=== PATIENT | male | born 1975 | race Caucasian/White ===

== ENCOUNTER 2019-07-26 16:24 | Inpatient (IN) ==
[2019-07-26] MEDS: Famotidine 20 MG TABLET PO SCH (23:51)
[2019-07-27] MEDS ORDERED: Naloxone 0.4 MG/ML INJ IVP PRN (01:41)
[2019-07-27] MEDS ORDERED: D5% in Water 1,000 ML IVC PRN (01:42)
[2019-07-27] MEDS ORDERED: *HR* Dextrose 50 % in Water (Syg) 50 ML SYRINGE IVP PRN (01:42)
[2019-07-27] MEDS ORDERED: Dextrose Gel 15 GM/37.5 ML TUBE PO PRN ×2 (01:42)
[2019-07-27] MEDS: Insulin LISPRO 300 UNITS/3 ML VIAL SQ SCH ×3 (06:06→17:56)
[2019-07-27] MEDS: *HR* Heparin 5,000 UNIT/ML VIAL SQ SCH ×2 (06:15→15:15)
[2019-07-27] MEDS: Famotidine 20 MG TABLET PO SCH ×2 (06:15→15:14)
[2019-07-27] MEDS: Pantoprazole 40 MG VIAL IVP SCH ×2 (06:15→17:57)
[2019-07-27 06:39] LABS: Hematocrit 47.1 % (37.5-50.1); Hemoglobin 16.2 g/dL (12.9-16.9); Mean Corpuscular HGB Conc 34.4 g/dL (31.6-35.5); Mean Corpuscular Hemoglobin 29.5 pg (28.0-33.3); Mean Corpuscular Volume 85.6 fL (83.0-100.0); Mean Platelet Volume 11.1 fL (9.4-12.4); Platelet Count 225 K/mcL (140-400); White Blood Count 11.5 K/mcL (4.3-11.1)
[2019-07-27 07:02] LABS: BUN/Creatinine Ratio 21 (6-26); Blood Urea Nitrogen 14 mg/dL (6-20); Calcium 9.2 mg/dL (8.6-10.3); Carbon Dioxide 26 mEq/L (23-29); Chloride 99 mEq/L (98-107); Glucose 211 mg/dL (70-105); Osmolality,Calculated 293 (280-300); Potassium 3.8 mEq/L (3.5-5.1); Sodium 138 mEq/L (136-145); Troponin I < 0.03 ng/mL (< 0.04); eGFR For African Americans > 60 (> 60); eGFR For Non-African Americans > 60 (> 60)
[2019-07-27] MEDS ORDERED: Regadenoson 0.4 MG/5 ML SYRINGE IVP ONE ×2 (08:53→09:00)
[2019-07-27] MEDS ORDERED: Perflutren Lipid Microsphere 1.3 ML in 0.9 % Sodium Chloride 8.7 ML IVP ONE (10:12)
[2019-07-27] MEDS ORDERED: Chloraseptic Spray 177 ML BOTTLE MM PRN ×2 (12:22→17:03)
[2019-07-27] MEDS: Aspirin 81 MG TAB.CHEW PO SCH (15:15)
[2019-07-27] MEDS: Insulin DETEMIR 100 UNIT/ML X5UNITS SQ SCH (20:38)
[2019-07-27] MEDS ORDERED: NON-FORMULARY MEDICATION 1 EACH EACH (Insulin Glargine,Hum.Rec.Anlog [Basaglar Kwikpen U-1 SQ SCH (21:00)
[2019-07-28] MEDS: Insulin LISPRO 300 UNITS/3 ML VIAL SQ SCH ×4 (00:14→16:59)
[2019-07-28] MEDS: Famotidine 20 MG TABLET PO SCH ×2 (06:31→16:55)
[2019-07-28] MEDS: Pantoprazole 40 MG VIAL IVP SCH ×2 (06:33→16:56)
[2019-07-28] MEDS: *HR* Heparin 5,000 UNIT/ML VIAL SQ SCH ×2 (06:34→17:02)
[2019-07-28] MEDS: Aspirin 81 MG TAB.CHEW PO SCH (08:23)
[2019-07-28] MEDS: Insulin DETEMIR 100 UNIT/ML X5UNITS SQ SCH (21:35)
[2019-07-29] MEDS: Insulin LISPRO 300 UNITS/3 ML VIAL SQ SCH ×4 (00:02→17:31)
[2019-07-29] MEDS: Famotidine 20 MG TABLET PO SCH ×2 (06:26→17:30)
[2019-07-29] MEDS: Pantoprazole 40 MG VIAL IVP SCH ×2 (06:26→17:36)
[2019-07-29] MEDS: *HR* Heparin 5,000 UNIT/ML VIAL SQ SCH ×2 (06:27→16:08)
[2019-07-29 06:34] LABS: Hematocrit 43.1 % (37.5-50.1); Hemoglobin 15.2 g/dL (12.9-16.9); Mean Corpuscular HGB Conc 35.3 g/dL (31.6-35.5); Mean Corpuscular Hemoglobin 29.1 pg (28.0-33.3); Mean Corpuscular Volume 82.4 fL (83.0-100.0); Mean Platelet Volume 11.2 fL (9.4-12.4); Platelet Count 200 K/mcL (140-400); Red Blood Count 5.23 M/mcL (4.19-5.50); Red Cell Distribution Width 12.8 % (11.5-14.5); White Blood Count 7.9 K/mcL (4.3-11.1)
[2019-07-29 06:37] LABS: Prothrombin Time 11.4 Seconds (9.4-12.1)
[2019-07-29 06:57] LABS: BUN/Creatinine Ratio 20 (6-26); Blood Urea Nitrogen 15 mg/dL (6-20); Calcium 8.8 mg/dL (8.6-10.3); Carbon Dioxide 27 mEq/L (23-29); Chloride 102 mEq/L (98-107); Glucose 240 mg/dL (70-105); Magnesium 1.9 mg/dL (1.6-2.6); Osmolality,Calculated 299 (280-300); Potassium 3.8 mEq/L (3.5-5.1); Sodium 140 mEq/L (136-145); eGFR For African Americans > 60 (> 60); eGFR For Non-African Americans > 60 (> 60)
[2019-07-29] MEDS ORDERED: *HR* Midazolam HCl 2 MG/2 ML VIAL ONE ×2 (10:10→10:53)
[2019-07-29] MEDS ORDERED: Nitroglycerin 1,000 MCG/10 ML VIAL IV ONE (10:11)
[2019-07-29] MEDS ORDERED: Heparin 1,000 UNITS/500 mL 500 ML ONE (10:11)
[2019-07-29] MEDS ORDERED: ISOVUE-370 200 ML INFUS..BTL ONE (10:11)
[2019-07-29] MEDS ORDERED: *HR* Heparin 10,000 UNIT/10 ML VIAL ONE (10:11)
[2019-07-29] MEDS ORDERED: *HR* FentaNYL (PF) 100 MCG/2 ML VIAL ONE ×2 (10:11→10:53)
[2019-07-29] MEDS ORDERED: 0.9 % Sodium Chloride 1,000 ML ONE ×2 (10:11→10:15)
[2019-07-29] MEDS ORDERED: Verapamil 5 MG/2 ML VIAL ONE (10:31)
[2019-07-29] MEDS ORDERED: Tirofiban 12.5 MG/250ML 12.5 MG/250 ML BAG ONE (11:06)
[2019-07-29] MEDS ORDERED: Tirofiban 12.5 MG/250ML 12.5 MG/250 ML BAG IVC SCH (11:45)
[2019-07-29] MEDS: Aspirin 81 MG TAB.CHEW PO SCH (12:29)
[2019-07-29] MEDS ORDERED: D5% in Water 1,000 ML IVC PRN (12:41)
[2019-07-29] MEDS ORDERED: Insulin LISPRO 300 UNITS/3 ML VIAL SQ SCH (21:00)
[2019-07-29] MEDS ORDERED: Acetaminophen 325 MG TABLET PO ONE (21:36)
[2019-07-29] MEDS: Insulin DETEMIR 100 UNIT/ML X5UNITS SQ SCH (21:51)
[2019-07-30] MEDS: *HR* Heparin 5,000 UNIT/ML VIAL SQ SCH (05:02)
[2019-07-30 05:09] LABS: BUN/Creatinine Ratio 19 (6-26); Blood Urea Nitrogen 13 mg/dL (6-20); eGFR For African Americans > 60 (> 60); eGFR For Non-African Americans > 60 (> 60)
[2019-07-30] MEDS: Pantoprazole 40 MG VIAL IVP SCH (05:44)
[2019-07-30 07:13] VITALS: BP 113/71
[2019-07-30] MEDS ORDERED: Nitroglycerin 0.4 MG PATCH.TD24 TD SCH (07:30)
[2019-07-30] MEDS: Famotidine 20 MG TABLET PO SCH (08:40)
[2019-07-30] MEDS: Aspirin 81 MG TAB.CHEW PO SCH (08:41)
[2019-07-30] MEDS: Insulin LISPRO 300 UNITS/3 ML VIAL SQ SCH (08:42)
[2019-07-30 08:44] LABS: Basophils # 0.1 K/mcL (0.0-0.2); Basophils % 0.6 %; Eosinophils # 0.3 K/mcL (0.0-0.6); Eosinophils % 3.1 %; Hematocrit 43.6 % (37.5-50.1); Immature Granulocytes % 0.7 % (0-4); Lymphocytes # 2.4 K/mcL (0.6-4.6); Lymphocytes % 28.5 %; Mean Corpuscular HGB Conc 34.4 g/dL (31.6-35.5); Mean Corpuscular Hemoglobin 29.2 pg (28.0-33.3); Mean Platelet Volume 10.6 fL (9.4-12.4); Monocytes # 0.8 K/mcL (0.0-1.3); Monocytes % 9.9 %; Neutrophils # 4.8 K/mcL (1.6-8.9); Platelet Count 185 K/mcL (140-400); Red Blood Count 5.13 M/mcL (4.19-5.50); Red Cell Distribution Width 12.6 % (11.5-14.5); Segmented Neutrophils % 57.2 %; White Blood Count 8.4 K/mcL (4.3-11.1)
== END 2019-07-30 11:40 | disposition home or self-care (01) | DRG 175 ==
LOC: 3BNU → SUATTDRO 18:27
PROVIDERS: ADMIT Internal Medicine; ATTEND Internal Medicine